=== PATIENT | male | born 1950 | race Caucasian/White ===

== ENCOUNTER → 2017-12-03 09:23 | Outpatient (CLI) | payer BC, SELFPAY ==
[2017-12-03 10:20] VITALS: PULSE 87; PULSE 92
== END ==
PROVIDERS: PCP Family Medicine; Visit Provider Family Medicine
DX: J44.1 Chronic obstructive pulmonary disease with (acute) exacerbation (principal); R06.2 Wheezing
CPT/HCPCS: 94060; 94640; 94726; 94729

== ENCOUNTER 2017-12-17 08:59 | Outpatient (RCR) | payer BC, SELFPAY | END 2017-12-17 09:00 | disposition home or self-care (01) | LOC: PT 08:59 | PROVIDERS: PCP Family Medicine; Visit Provider Family Medicine | DX: J43.2 Centrilobular emphysema (principal) | CPT/HCPCS: 93798; G0424 ==

== ENCOUNTER → 2017-12-31 11:07 | Outpatient (CLI) | payer BC, SELFPAY ==
--- NOTE | 2017-12-31 11:11 | XR_ITS ---
XR chest 2V HISTORY: Pneumonia follow-up ITS.REASON: F/U PNEUMONIA ORDERING PHYSICIAN: Raul García MD PATIENT AGE: 67 years No previous exams available for comparison FINDINGS: Extensive emphysematous changes are present. There is biapical pleural thickening with scarring. There is increased density in the left infra hilar region in the mid lung consistent with pneumonia. There is also increased density in the right upper lobe which could be due to pneumonia, pulmonary mass, or fibrotic change. No previous exams available for comparison. Chest CT with contrast may be of further value if clinically warranted. There is hyperinflation with attenuation of peripheral pulmonary vessels. No acute bony anomalies. Normal heart size. IMPRESSION: 1. Emphysema/COPD with left infrahilar pneumonia. 2. Prominent opacity in the right upper lobe medially measuring 6.9 x 2.9 cm and may be due to pneumonia, mass, or postinflammatory fibrotic change. Chest CT with contrast may be of further value
== END ==
PROVIDERS: PCP Family Medicine; Visit Provider Family Medicine
DX: J18.9 Pneumonia, unspecified organism (principal)
CPT/HCPCS: 71046

== ENCOUNTER → 2018-01-16 07:42 | Outpatient (CLI) | payer BC, SELFPAY ==
[2018-01-16 08:17] LABS: Blood Urea Nitrogen 12 mg/dL (7-18); Creatinine,Serum 0.67 mg/dL (0.70-1.30); Estimated Glomerular Filt Rate 118 ml/min (>60); GFR (African American) 143 ML/MIN (>60)
--- NOTE | 2018-01-16 08:26 | CT_ITS ---
EXAM: CT CHEST WITH CONTRAST HISTORY: Recurrent pneumonia, abnormal chest x-ray, COPD/emphysema ORDERING PHYSICIAN: Raul García MD PATIENT AGE: 67 years COMPARISON: 12/31/2017 TECHNIQUE: Axial images obtained following the administration of 75 mL of Isovue 370 . Sagittal, and coronal reformatted images are also generated and reviewed. All CT scans at the facility use one or more dose reduction, viz: automated exposure control; ma/kV adjustment per patient size (including targeted exams where dose is matched to indication; i.e. head); or iterative reconstruction technique. FINDINGS: No mediastinal or hilar mass or adenopathy. Normal heart size. No evidence of aortic aneurysm, dissection, or central pulmonary embolus. Coronary artery calcifications are present. There are the severe cast lobular emphysematous changes with bullous changes in both upper and lower lobes.. There is biapical pleural/parenchymal fibronodular changes. Small cavities are present in the right apex. Irregular increased density is present in both lung apices right more extensive in left and may be related to postinflammatory fibrotic changes. There is some faint calcification within these abnormalities.. There is a 7 mm noncalcified nodule in the left upper lobe laterally and posteriorly. There are some fibrotic changes in the left lung base.There is mild increase AP diameter of the trachea at 2.7 cm. No central obstructing lesion is evident. Dependent secretions are present in the trachea and left mainstem bronchus. No acute bony anomalies. Upper abdominal images are unremarkable. IMPRESSION: 1. Bullous emphysematous changes with scattered areas of parenchymal fibrosis. Biapical pleural parenchymal opacification with some calcification likely related to postinflammatory scarring. There is some minimal cavitation in the right apex. No air-fluid levels. 2. 7 mm noncalcified nodule left upper lobe which is indeterminate.. 3. Suggest 6 month follow-up to confirm stability of the above-mentioned findings
== END ==
PROVIDERS: PCP Family Medicine; Visit Provider Family Medicine
DX: R93.8 Abnormal findings on diagnostic imaging of other specified body structures (principal); J18.9 Pneumonia, unspecified organism
CPT/HCPCS: 36415; 71260; 82565; 84520; Q9967

== ENCOUNTER → 2018-06-17 09:06 | Outpatient (CLI) | payer BC, SELFPAY ==
--- NOTE | 2018-06-17 09:08 | XR_ITS ---
XR chest 2V HISTORY: Shortness of air with cough, smoker ITS.REASON: colonoscopy ORDERING PHYSICIAN: Pablito Rasmussen MD PATIENT AGE: 67 years COMPARISON: 12/31/2017 FINDINGS: Normal heart size. There are severe emphysematous changes with bilateral upper lobe fibrotic change with apical pleural thickening. There is an air-fluid level present in the right upper lobe within a small cavity as noted on the CT scan. There is hyperinflation with eventration of the hemidiaphragms.. Chronic changes are present in the right upper lobe and lung bases. There is slight increased density in the right upper lobe which could be related to progressing fibrotic change or superimposed consolidation. No acute bony anomalies. IMPRESSION: Severe emphysematous change with biapical pleural-parenchymal opacification with slight increased density in the right upper lobe also with a small air-fluid level in the right upper lobe. Infected bulla or an air-fluid level within pre-existing small cavities is a consideration. Consider chest CT for further evaluation
== END ==
PROVIDERS: PCP Family Medicine; Visit Provider Surgery
DX: Z12.11 Encounter for screening for malignant neoplasm of colon (principal)
CPT/HCPCS: 71046; 93005